=== PATIENT | male | born 1950 | race Caucasian/White ===

== ENCOUNTER 2018-07-30 09:38 | Emergency (ER) | payer MEDICARE, MEDICAID ==
[~2018-07-30] VITALS: Ht 162.6 cm; Wt 85.0 kg
[~2018-07-30 09:38] MED LIST: AMLO10TA80 PO; ASPI-1159 PO; ATOR40TA70 PO; BENA40TA9 PO; CARV6.2548 PO; DILT-26 PO; FERR-63 PO; FLUO20CA33 PO; HYDR100T26 PO; LEVO200T8 PO; LOSA50TA20 PO; METF-416 PO; PANT40TA4 PO
[2018-07-30 09:41] VITALS: BP 164/75
== END 2018-07-30 10:36 | disposition left against medical advice (07) ==
LOC: ER 09:38
DX: R68.89 Other general symptoms and signs (principal); Z53.21 Procedure and treatment not carried out due to patient leaving prior to being seen by health care provider